=== PATIENT | male | born 1980 | race Caucasian/White ===

== ENCOUNTER 2022-01-04 03:08 | Emergency (ER) | payer BC, SELFPAY ==
[2022-01-04 03:14] VITALS: BP 118/78; PULSE 68; RESP 18; TEMP 36.2; O2SAT 98; BMI 32.5
--- NOTE | 2022-01-04 03:23 | ED.GENADULT ---
HPI - General Adult General Chief complaint: Extremity Pain/Injury, Upper Stated complaint: sharp pain lt arm light headed Time Seen by Provider: 01/04/22 03:09 History of Present Illness HPI narrative: Patient is a a 41-year-old gentleman who over last several days had radicular symptoms down the left arm and hand. The discomfort in numbness extent to all the digits of his left hand. Symptoms extend proximally to the biceps region. He has no fever chills. No recent injuries. No bowel or bladder symptoms no headache no stiff neck. He has had no similar symptoms previously. Related Data Home Medications Medication Instructions Recorded Confirmed albuterol sulfate 2.5 mg/3 mL 2.5 mg inhalation Q4H PRN 01/04/22 01/04/22 (0.083 %) solution for nebulization albuterol sulfate 90 mcg/actuation 1 inh inhalation Q4H PRN 01/04/22 01/04/22 aerosol inhaler fluticasone 250 mcg-salmeterol 50 1 inh inhalation Q12H 01/04/22 01/04/22 mcg/dose blistr powdr for inhalation (Advair Diskus) Allergies Allergy/AdvReac Type Severity Reaction Status Date / Time No Known Drug Allergies Allergy Verified 01/04/22 03:17 Review of Systems Status of ROS: Reports: 10 or more systems reviewed and unremarkable except as noted in History and below [facility] Medical History Asthma Surgical History No significant past surgical history Social History Smoking Status: Never smoker Do you use any of these nicotine containing products: None How often do you have a drink containing alcohol: never How often do you have six or more drinks on one occasion: Never AUDIT-C Alcohol total score: 0 Non-prescribed substance use: denies use Exam Narrative: Exam Narrative: EXAM GENERAL: Patient appears comfortable and well. EYES: No scleral icterus. LYMPH: No supraclavicular or cervical lymphadenopathy. SKIN: Visible skin seen during exam normal or with benign process only. EXT: No dependent lower extremity pedal edema. HEART: Regular rate and rhythm with no murmurs, rubs, or gallops. LUNGS: Clear to auscultation bilaterally with no crackles or wheezes. ABD: Soft, non tender, non distended. PSYCH: Good eye contact, speech is not pressured. Const: Vital Signs, click to edit/add: Vital Signs - 24 hr 01/04/22 03:14 Temperature 97.2 F L Pulse Rate [Right Pulse Oximeter] 68 Respiratory Rate 18 Blood Pressure [Le ft Upper Arm] 118/78 Pulse Oximetry 98 Oxygen Delivery Me thod Room Air Course Vital Signs Vital signs: Initial Vital Signs Temperature 97.2 F L 01/04/22 03:14 Temperature Source Temporal Artery Scan 01/04/22 03:14 Pulse Rate 68 01/04/22 03:14 Respiratory Rate 18 01/04/22 03:14 Blood Pressure 118/78 01/04/22 03:14 Blood Pressure Mean 91 01/04/22 03:14 Blood Pressure Position Sitting 01/04/22 03:14 Pulse Oximetry 98 01/04/22 03:14 Oxygen Delivery Method 01/04/22 03:14 Vital Signs Temperature 97.2 F L 01/04/22 03:14 Pulse Rate 68 01/04/22 03:14 Respiratory Rate 18 01/04/22 03:14 Blood Pressure 118/78 01/04/22 03:14 Pulse Oximetry 98 01/04/22 03:14 Oxygen Delivery Method 01/04/22 03:14 Temperature 97.2 F L 01/04/22 03:14 Pulse Rate 68 01/04/22 03:14 Respiratory Rate 18 01/04/22 03:14 Blood Pressure 118/78 01/04/22 03:14 Pulse Oximetry 98 01/04/22 03:14 Oxygen Delivery Method 01/04/22 03:14 Medical Decision Making MDM Narrative Medical decision making narrative: Patient has a cervical radiculopathy. I do not believe further evaluation is indicated. We did discuss treatment and will be proceeding with anti-inflammatories. Discharge Plan Discharge Clinical Impression: Cervical radiculopathy Patient Disposition: Home, Self-Care Condition: Stable Instructions: Cervical Radiculopathy (ED) Activity Level: No Restrictions Discharge Diet: Regular Prescriptions: No Action albuterol sulfate 2.5 mg /3 mL (0.083 %) solution for nebulization 2.5 mg inhalation Q4H PRN Label Comments: INHALE 3MLS VIA NEBULIZER EVERY 4 HOURS NEEDED albuterol sulfate 90 mcg/actuation HFA aerosol inhaler 1 inh INHALATION Q4H PRN Label Comments: INHALE 1 TO 2 PUFFS BY MOUTH EVERY 4 HOURS NEEDED FOR SHORTNESS OF BREATH OR WHEEZING Stand Alone [facility]: [facility] Inst[facility]
[2022-01-04 03:34] VITALS: BP 118/78; PULSE 68; RESP 18; TEMP 36.2; O2SAT 98
[2022-01-04 03:35] VITALS: BP 118/78; PULSE 68; RESP 18; TEMP 36.2
== END 2022-01-04 03:57 | disposition home or self-care (01) ==
PROVIDERS: Emergency Provider Internal Medicine; PCP Family Medicine
DX: M54.12 Radiculopathy, cervical region (principal)
CPT/HCPCS: 99282; 99283